=== PATIENT | male | born 1950 | race Caucasian/White ===

== ENCOUNTER 2020-02-08 14:31 | Emergency (ER) | payer MEDICARE ==
[~2020-02-08] VITALS: Ht 170.2 cm; Wt 61.4 kg
[2020-02-08 14:41] VITALS: TEMP 97.6
[2020-02-08] MEDS ORDERED: NORCO 325 MG-51 TAB PO (16:46)
[2020-02-08] MEDS ORDERED: CEPHALEXIN500 M1 PO (16:46)
[2020-02-08 17:39] VITALS: BP 154/97; PULSE 91
== END 2020-02-08 17:42 | disposition home or self-care (01) ==
LOC: COL.ER 14:31
DX: S22.9 Fracture of bony thorax, part unspecified (principal); S68.021A Partial traumatic metacarpophalangeal amputation of right thumb, initial encounter; Z23 Encounter for immunization; F17.210 Nicotine dependence, cigarettes, uncomplicated; W26.8XXA Contact with other sharp object(s), not elsewhere classified, initial encounter